=== PATIENT | male | born 1990 | race Caucasian/White ===

== ENCOUNTER 2024-07-05 16:01 | Emergency (ER) | payer MEDICAID, SELFPAY ==
[2024-07-05 16:05] VITALS: RESP 18
[2024-07-05 16:08] VITALS: RESP 18
[2024-07-05 16:34] VITALS: PULSE 88; RESP 18
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
== END 2024-07-05 17:34 ==
PROVIDERS: Emergency Provider Emergency Medicine
DX: F10.929 Alcohol use, unspecified with intoxication, unspecified; Z02.79 Encounter for issue of other medical certificate
CPT/HCPCS: 99282; 99283